=== PATIENT | female | born 1985 | race Caucasian/White ===

== ENCOUNTER 2024-03-11 21:30 | Inpatient (IN) | payer SELFPAY ==
[2024-03-11] MEDS ORDERED: HYDROmorphone HCl 2 MG/ML VIAL ONE (23:03)
[2024-03-11 23:05] LABS: HEMATOCRIT 40.5 % (32.4-45.2); MCH 29.4 pg (25.7-33.7); MCHC 32.1 g/dl (32.0-36.0); MEAN CELL VOLUME 91.7 fl (80-96); MEAN PLT VOLUME 10.6 fl (7.5-11.1); PLATELET COUNT 161.5 10^3/uL (134-434); RBC 4.42 10^6/uL (3.60-5.2); RDW 14.3 % (11.6-15.6); WHITE BLOOD COUNT 11.9 10^3/uL (4.0-10.8)
[2024-03-11] MEDS: HYDROmorphone HCl 2 MG/ML VIAL IVPUSH ONE (23:12)
[2024-03-11 23:13] LABS: PLATELET ESTIMATE ADEQUATE
[2024-03-11 23:38] LABS: ALBUMIN 2.2 g/dl (3.4-5.0); BILIRUBIN,TOTAL 0.3 mg/dl (0.2-1); TOT PROT 3.9 g/dl (6.4-8.2)
[2024-03-11 23:42] LABS: CALCIUM 4.5 mg/dl (8.5-10.1); POTASSIUM 2.2 mmol/L (3.5-5.1)
[2024-03-11] MEDS ORDERED: KCL 10 MEQ IVPB 10 MEQ/100 ML INFUS.BAG IVPB SCH (23:45)
[2024-03-11] MEDS ORDERED: POTASSIUM CHLORIDE ORAL LIQUID 20 MEQ/15 ML PO ONE (23:50)
[2024-03-12] MEDS ORDERED: HYDROmorphone HCl 2 MG/ML VIAL ONE ×2 (00:29→02:33)
[2024-03-12] MEDS: HYDROmorphone HCl 2 MG/ML VIAL IVPUSH ONE ×3 (00:39→06:27)
[2024-03-12 02:05] LABS: POTASSIUM 3.8 mmol/L (3.5-5.1)
[2024-03-12 02:07] LABS: ALBUMIN 3.3 g/dl (3.4-5.0); BLOOD UREA NITROGEN 8.9 mg/dL (7-18); CALCIUM 7.9 mg/dL (8.5-10.1)
[2024-03-12 02:10] LABS: CREATININE 0.8 mg/dL (0.55-1.3)
[2024-03-12 02:12] LABS: BILIRUBIN,TOTAL 0.4 mg/dL (0.2-1)
[2024-03-12] MEDS: ACETAMINOPHEN 1000 MG/100 ML BAG IVPB ONE (05:15)
[2024-03-12] MEDS: hydrOXYzine PAMOATE 25 MG CAPSULE (FP) PO ONE (05:54)
[2024-03-12] MEDS: KETOROLAC TROMETHAMINE 30 MG/1 ML VIAL IVPB ONE (06:15)
[2024-03-12 06:22] VITALS: BP 157/107; PULSE 111; RESP 20
[2024-03-12 06:56] VITALS: TEMP 98.8; BMI 128.4
[2024-03-12] MEDS ORDERED: ACETAMINOPHEN 1000 MG/100 ML BAG IVPB PRN (07:15)
[2024-03-12] MEDS: GABAPENTIN 100 MG CAPSULE PO SCH (08:54)
[2024-03-12] MEDS: HYDROmorphone HCl 2 MG/ML VIAL IVPB ONE (08:54)
[2024-03-12 08:58] LABS: HEMATOCRIT 38.6 % (32.4-45.2); HEMOGLOBIN 12.3 G/dL (10.7-15.3); MCH 29.1 pg (25.7-33.7); MCHC 31.9 g/dl (32.0-36.0); MEAN CELL VOLUME 91.2 fl (80-96); MEAN PLT VOLUME 11.2 fl (7.5-11.1); PLATELET COUNT 163.1 10^3/uL (134-434); RBC 4.23 10^6/uL (3.60-5.2); RDW 14.4 % (11.6-15.6); WHITE BLOOD COUNT 11.1 10^3/uL (4.0-10.8)
[2024-03-12 09:57] LABS: CALCIUM 7.5 mg/dl (8.5-10.1); CREATININE 0.8 mg/dl (0.6-1.3); POTASSIUM 3.6 mmol/L (3.5-5.1)
[2024-03-12 10:25] LABS: PLATELET ESTIMATE ADEQUATE
[2024-03-12] MEDS ORDERED: KETOROLAC TROMETHAMINE 30 MG/1 ML VIAL IVPUSH SCH (14:00)
== END 2024-03-12 09:45 | disposition left against medical advice (07) | DRG 251 ==
LOC: FER 21:30 → FM/S 03-12 04:24
PROVIDERS: ADMIT Internal Medicine; ATTEND Internal Medicine
DX: R10.9 Unspecified abdominal pain (principal); E66.01 Morbid (severe) obesity due to excess calories; Z68.45 Body mass index [BMI] 70 or greater, adult; R53.1 Weakness
CPT/HCPCS: 36415; 70450-TC; 80048; 80053; 82135; 82962; 84110; 84703; 85027; 93005; 99285-25